=== PATIENT | male | born 1955 | race Caucasian/White ===

== ENCOUNTER 2018-03-16 21:52 | Inpatient (IN) | payer OTHER ==
[~2018-03-16] VITALS: Ht 190.5 cm; Wt 88.0 kg
[2018-03-16] MEDS ORDERED: ALBUTEROL SULFATE 2.5 MG/3 ML NEBU. CONT NEB ONE (22:15)
[2018-03-16] MEDS ORDERED: methylPREDNISolone SOD SUCC PF 125 MG/2 ML VIAL. IV ONE (22:15)
[2018-03-16 22:24] LABS: BASO % 0 % (0-3); EOS # 0.1 x10^3/uL (0.0-0.7); EOS % 1 % (0-3); HEMOGLOBIN 14.5 g/dL (13.0-17.5); LYMPH # 2.1 x10^3/uL (1.0-4.8); LYMPH % 18 % (24-48); MEAN CORPUSCULAR HEMOGLOBIN 30 pg (25-35); MEAN CORPUSCULAR HGB CONC 34 g/dL (31-37); MEAN CORPUSCULAR VOLUME 89 fL (79-100); MONO % 9 % (0-9); NEUT # 8.3 x10^3uL (1.8-7.7); NEUT % 72 % (31-73); PLATELET COUNT 221 x10^3/uL (140-400); RED BLOOD COUNT 4.85 x10^6/uL (4.30-5.70); RED CELL DISTRIBUTION WIDTH 15.8 % (11.5-14.5); WHITE BLOOD COUNT 11.6 x10^3/uL (4.0-11.0)
[2018-03-16 22:33] LABS: CALCIUM 9.6 mg/dL (8.5-10.1); CREATININE 0.8 mg/dL (0.7-1.3); GFR 97.3; POTASSIUM 4.5 mmol/L (3.5-5.1)
[2018-03-16 22:37] LABS: ALBUMIN 3.6 g/dL (3.4-5.0); ALBUMIN/GLOBULIN RATIO 0.9 (1.0-1.7); TOTAL BILIRUBIN 0.3 mg/dL (0.2-1.0); TOTAL PROTEIN 7.6 g/dL (6.4-8.2)
--- NOTE | 2018-03-16 23:00 | RAD ---
AP portable chest radiograph 03/16/2018 Clinical History: Shortness of breath. An AP erect portable digital radiograph of the chest was obtained. Comparison study is dated 11/09/2012. The cardiac silhouette is normal in size. The thoracic aorta is minimally tortuous. Atherosclerotic calcification of the thoracic aorta is seen. Emphysematous changes are seen involving both lungs. No acute pulmonary infiltrate is seen. No pleural effusion or pneumothorax is noted. Degenerative changes are seen involving the thoracic spine. IMPRESSION: No acute abnormality is seen. Electronically signed by: Gerald Chamberlain MD (03/16/2018 10:57 PM) [facility]
--- NOTE | 2018-03-16 23:18 | PHYS DOC ---
Past Medical History Past Medical History: COPD Past Surgical History: Appendectomy, Cholecystectomy, Other Additional Past Surgical Histo: KNEE Additional Information: 1 PPD Alcohol Use: None Drug Use: Methadone Adult General Chief Complaint Chief Complaint: SHORTNESS OF BREATH HPI HPI Patient is a 62 year old male who presents with shortness of breath. The patient does have a diagnosis of COPD. He states that he has been extremely short of breath for the past 2 days. He is also wheezing. None of his at home medications are believed of symptoms. He denies chest pain diaphoresis or fever. He does have a cough. The patient is a current smoker. Review of Systems Review of Systems Constitutional: Denies fever or chills [] Eyes: Denies change in visual acuity, redness, or eye pain [] HENT: Denies nasal congestion or sore throat [] Respiratory: See history of present illness Cardiovascular: No additional information not addressed in HPI [] GI: Denies abdominal pain, nausea, vomiting, bloody stools or diarrhea [] : Denies dysuria or hematuria [] Musculoskeletal: Denies back pain or joint pain [] Integument: Denies rash or skin lesions [] Neurologic: Denies headache, focal weakness or sensory changes [] Endocrine: Denies polyuria or polydipsia [] All other systems were reviewed and found to be within normal limits, except as documented in this note. Current Medications Current Medications Current Medications Medications (Trade) Dose Ordered Sig/Candace Start Time Stop Time Status Last Admin Dose Admin Albuterol Sulfate (Ventolin Neb Soln) 10 mg 1X ONCE 03/16/18 22:15 03/16/18 22:16 DC 03/16/18 22:15 10 MG Albuterol/ Ipratropium (Duoneb) 3 ml RTQID 03/17/18 08:00 03/18/18 07:59 Methylprednisolone Sodium Succinate (SOLU-Medrol 125MG VIAL) 125 mg 1X ONCE 03/16/18 22:15 03/16/18 22:16 DC 03/16/18 22:15 125 MG Ondansetron HCl (Zofran) 4 mg PRN Q8HRS PRN 03/17/18 00:00 03/17/18 23:59 Sodium Chloride 1,000 ml @ 125 mls/hr Q8H 03/17/18 00:00 03/17/18 00:04 DC Allergies Allergies Allergies Coded Allergies Type Severity Reaction Last Updated Verified No Known Drug Allergies 03/16/18 No Physical Exam Physical Exam Constitutional: Well developed, well nourished, no acute distress, non-toxic appearance. [] HENT: Normocephalic, atraumatic, bilateral external ears normal, oropharynx moist, no oral exudates, nose normal. [] Eyes: PERRLA, EOMI, conjunctiva normal, no discharge. [] Neck: Normal range of motion, no tenderness, supple, no stridor. [] Cardiovascular:Heart rate regular rhythm, no murmur [] Lungs & Thorax: Bilateral breath sounds are decreased with wheezes noted throughout Abdomen: Bowel sounds normal, soft, no tenderness, no masses, no pulsatile masses. [] Skin: Warm, dry, no erythema, no rash. [] Neurologic: Alert and oriented X 3, normal motor function, normal sensory function, no focal deficits noted. [] Psychologic: Affect normal, judgement normal, mood normal. [] Current Patient Data Vital Signs Vital Signs Date Time Temp Pulse Resp B/P (MAP) Pulse Ox O2 Delivery O2 Flow Rate FiO2 03/16/18 23:59 95 Nasal Cannula 3.0 03/16/18 22:06 98.1 114 22 145/74 (97) 98.1 Lab Values Laboratory Tests Test 03/16/18 22:01 03/16/18 22:10 O2 Saturation 93 % (92-99) Arterial Blood pH 7.32 (7.35-7.45) L Arterial Blood pCO2 at Patient Temp 56 mmHg (35-46) H Arterial Blood pO2 at Patient Temp 64 mmHg (65-108) L Arterial Blood HCO3 28 mmol/L (21-28) Arterial Blood Base Excess 1 mmol/L (-3-3) Oxyhemoglobin 82.5 % Methemoglobin 0.2 % (0.0-1.9) Carbon Monoxide, Quantitative 10.7 % (0.0-1.9) *H White Blood Count 11.6 x10^3/uL (4.0-11.0) H Red Blood Count 4.85 x10^6/uL (4.30-5.70) Hemoglobin 14.5 g/dL (13.0-17.5) Hematocrit 43.0 % (39.0-53.0) Mean Corpuscular Volume 89 fL (79-100) Mean Corpuscular Hemoglobin 30 pg (25-35) Mean Corpuscular Hemoglobin Concent 34 g/dL (31-37) Red Cell Distribution Width 15.8 % (11.5-14.5) H Platelet Count 221 x10^3/uL (140-400) Neutrophils (%) (Auto) 72 % (31-73) Lymphocytes (%) (Auto) 18 % (24-48) L Monocytes (%) (Auto) 9 % (0-9) Eosinophils (%) (Auto) 1 % (0-3) Basophils (%) (Auto) 0 % (0-3) Neutrophils # (Auto) 8.3 x10^3uL (1.8-7.7) H Lymphocytes # (Auto) 2.1 x10^3/uL (1.0-4.8) Monocytes # (Auto) 1.0 x10^3/uL (0.0-1.1) Eosinophils # (Auto) 0.1 x10^3/uL (0.0-0.7) Basophils # (Auto) 0.0 x10^3/uL (0.0-0.2) Sodium Level 138 mmol/L (136-145) Potassium Level 4.5 mmol/L (3.5-5.1) Chloride Level 100 mmol/L (98-107) Carbon Dioxide Level 30 mmol/L (21-32) Anion Gap 8 (6-14) Blood Urea Nitrogen 16 mg/dL (8-26) Creatinine 0.8 mg/dL (0.7-1.3) Estimated GFR (Cockcroft-Gault) 97.3 BUN/Creatinine Ratio 20 (6-20) Glucose Level 126 mg/dL (70-99) H Lactic Acid Level 0.6 mmol/L (0.4-2.0) Calcium Level 9.6 mg/dL (8.5-10.1) Total Bilirubin 0.3 mg/dL (0.2-1.0) Aspartate Amino Transferase (AST) 17 U/L (15-37) Alanine Aminotransferase (ALT) 22 U/L (16-63) Alkaline Phosphatase 134 U/L (46-116) H Total Protein 7.6 g/dL (6.4-8.2) Albumin 3.6 g/dL (3.4-5.0) Albumin/Globulin Ratio 0.9 (1.0-1.7) L Laboratory Tests 03/16/18 22:10 Laboratory Tests 03/16/18 22:10 EKG EKG [] Radiology/Procedures Radiology/Procedures [] PATIENT: LYNDA GUAJARDO ACCOUNT: [id number] : 1955 LOCATION: ER AGE: 62 SEX: M EXAM STATUS: REG ER ORD. PHYSICIAN: CHELA COLLINS GLUING MACHINE OPERATOR AUTOMATIC REASON: soa PROCEDURE: CHEST AP ONLY AP portable chest radiograph 03/16/2018 Clinical History: Shortness of breath. An AP erect portable digital radiograph of the chest was obtained. Comparison study is dated 11/09/2012. The cardiac silhouette is normal in size. The thoracic aorta is minimally tortuous. Atherosclerotic calcification of the thoracic aorta is seen. Emphysematous changes are seen involving both lungs. No acute pulmonary infiltrate is seen. No pleural effusion or pneumothorax is noted. Degenerative changes are seen involving the thoracic spine. IMPRESSION: No acute abnormality is seen. Electronically signed by: Gerald Chamberlain MD (03/16/2018 10:57 PM) [facility] DICTATED and SIGNED BY: GERALD CHAMBERLAIN MD DATE: 03/16/18 4671 Course & Med Decision Making Course & Med Decision Making Pertinent Labs and Imaging studies reviewed. (See chart for details) []The patient has been given Solu-Medrol and an hour-long nebulizer treatment in the emergency department with albuterol. The wheezing did decrease but the patient still has coarse breath sounds. This was followed with a DuoNeb breathing treatment. The patient is still needing 3 L of O2 to maintain an oxygen sat of 93%. The patient does desat when oxygen is removed into the 80s. The patient will be admitted to Dr. Jeffries's service. Pulmonology has been consulted. Dragon Disclaimer Dragon Disclaimer This electronic medical record was generated, in whole or in part, using a voice recognition dictation system. Departure Departure Impression: Primary Impression: COPD exacerbation Additional Impression: Hypoxia Disposition: ADMITTED INPATIENT Admitting Physician: Xie. Weinstein Condition: GUARDED Referrals: MICHAEL SERNA MD (PCP) Problem Qualifiers CHELA COLLINS GLUING MACHINE OPERATOR AUTOMATIC Mar 16, 2018 23:18
[2018-03-16 23:49] LABS: BASE EXCESS COOX 1 mmol/L (-3-3); HCO3 COOX 28 mmol/L (21-28); METHEMOGLOBIN 0.2 % (0.0-1.9); OXYHEMOGLOBIN 82.5 %; PCO2 COOX 56 mmHg (35-46); PO2 COOX 64 mmHg (65-108); SAT O2 COOX 93 % (92-99)
--- NOTE | 2018-03-16 23:53 | EKG ---
[facility] [address] [place] [address] Test Date: 2018-03-16 Test Time: 22:10:51 Pat Name: LYNDA GUAJARDO Department: Room: Gender: M Complaints Coordinator: : 1955 Requested By: CEHLA COLLINS Order Number: [id number] Reading MD: Daryn Her Measurements Intervals [place] Rate: 96 P: 21 IN: 152 QRS: -48 QRSD: 88 T: 58 QT: 362 QTc: 458 Interpretive Statements SINUS RHYTHM ABNORMAL LEFT AXIS DEVIATION ABNORMAL ECG Electronically Signed On 03-20-2018 10:53:03 CDT by Daryn Her
[2018-03-16] MEDS ORDERED: IPRATRPIUM/ALBUTEROL 0.5/2.5MG 3 ML NEBU. NEB ONE (23:55)
[2018-03-17] MEDS ORDERED: ONDANSETRON PF 4 MG/2 ML VIAL. IV PRN
[2018-03-17] MEDS ORDERED: IV NORMAL SALINE 1000ML BAG 1,000 ML IV SCH
[2018-03-17 02:32] VITALS: BP 129/73
[2018-03-17 05:37] LABS: CREATININE 0.8 mg/dL (0.7-1.3); GFR 97.3; POTASSIUM 4.7 mmol/L (3.5-5.1)
[2018-03-17 07:00] VITALS: BP 117/67
[2018-03-17] MEDS ORDERED: IPRATRPIUM/ALBUTEROL 0.5/2.5MG 3 ML NEBU. NEB SCH (08:00)
--- NOTE | 2018-03-17 08:17 | PDOC1 ---
History and Physical Date of Admission Date of Admission DATE: 03/17/18 TIME: 08:08 Source Source: Chart review, Patient History of Present Illness History of Present Illness Mr. Rubin is a 62 year old male admit overnight from the ER with acute shortness of breath. His PCP is Dr. Gonzalez, he takes no meds, is retired from [employer], lives with his son, has no medical problems that he knows of He had been extremely short of breath for the past 2 days, w. wheezing. cough but no sputum production, he does have a regular AM cough, After steroids and nebs given in the ER, he feels much improved and is now asking how soon he may get to go home Past Medical History Cardiovascular: No pertinent hx Pulmonary: No pertinent hx GI: No pertinent hx Heme/Onc: No pertinent hx Hepatobiliary: No pertinent hx ENT: No pertinent hx Social History Smoke: <1 pack per day ALCOHOL: none Drugs: None Current Problem List Problem List Problems Medical Problems: (1) COPD exacerbation Status: Acute (2) Hypoxia Status: Acute Current Medications Current Medications Current Medications Albuterol Sulfate (Ventolin Neb Soln) 10 mg 1X ONCE CONT NEB Last administered on 03/16/18at 22:15; Start 03/16/18 at 22:15; Stop 03/16/18 at 22:16 ; Status DC Methylprednisolone Sodium Succinate (SOLU-Medrol 125MG VIAL) 125 mg 1X ONCE IV Last administered on 03/16/18at 22:15; Start 03/16/18 at 22:15; Stop 03/16/18 at 22:16; Status DC Albuterol/ Ipratropium (Duoneb) 3 ml 1X ONCE NEB Last administered on at 23:55; Start 03/16/18 at 23:55; Stop 03/16/18 at 23:58; Status DC Ondansetron HCl (Zofran) 4 mg PRN Q8HRS PRN IV NAUSEA/VOMITING; Start 03/17/18 at 00:00; Stop 03/17/18 at 23:59 Sodium Chloride 1,000 ml @ 125 mls/hr Q8H IV Last administered on 03/17/18at 00 :59; Start 03/17/18 at 00:00; Stop 03/17/18 at 00:04; Status DC Albuterol/ Ipratropium (Duoneb) 3 ml RTQID NEB Last administered on 03/17/18at 07:35; Start 03/17/18 at 08:00; Stop 03/17/18 at 08:00; Status DC Albuterol/ Ipratropium (Duoneb) 3 ml Q4HRS W/A NEB ; Start 03/17/18 at 10:00 Prednisone (Prednisone) 40 mg DAILY PO ; Start 03/17/18 at 09:00 Active Scripts Active Reported No Known Medications Prior To Admisstion (Info) Each 1 Each Allergies Allergies: Coded Allergies: No Known Drug Allergies (Unverified , 03/16/18) ROS General: No: Chills, Night Sweats, Fatigue, Malaise, Appetite, Other PSYCHOLOGICAL ROS: No: Anxiety, Behavioral Disorder, Concentration difficultie , Decreased libido, Depression, Disorientation, Hallucinations, Hostility, Irritablity, Memory difficulties, Mood Swings, Obsessive thoughts, Physical abuse, Sexual abuse, Sleep disturbances, Suicidal ideation, Other Eyes: No Blurry vision, No Decreased vision, No Double vision, No Dry eyes, No Excessive tearing, No Eye Pain, No Itchy Eyes, No Loss of vision, No Photophobia , No Scotomata, No Uses contacts, No Uses glasses, No Other HEENT: No: Heacaches, Visual Changes, Hearing change, Nasal congestion, Nasal discharge, Oral lesions, Sinus pain, Sore Throat, Epistaxis, Sneezing, Snoring, Tinnitus, Vertigo, Vocal changes, Other Respiratory: YES: Cough, Shortness of breath, SOB with excertion, Wheezing Cardiovascular: No Chest Pain, No Palpitations, No Orthopnea, No Paroxysmal Noc. Dyspnea, No Edema, No Lt Headedness, No Other Gastrointestinal: No Nausea, No Vomiting, No Abdominal Pain, No Diarrhea, No Constipation, No Melena, No Hematochezia, No Other Genitourinary: No Dysuria, No Frequency, No Incontinence, No Hematuria, No Retention, No Discharge, No Urgency, No Pain, No Flank Pain, No Other, No , No , No , No , No , No , No Musculoskeletal: No Gait Disturbance, No Joint Pain, No Joint Stiffness, No Joint Swelling, No Muscle Pain, No Muscular Weakness, No Pain In:, No Swelling In:, No Other Neurological: No Behavorial Changes, No Bowel/Bladder ControlChng, No Confusion , No Dizziness, No Gait Disturbance, No Headaches, No Impaired Coord/balance, No Memory Loss, No Numbness/Tingling, No Seizures, No Speech Problems, No Tremors, No Visual Changes, No Weakness, No Other Skin: No Dry Skin, No Eczema, No Hair Changes, No Lumps, No Mole Changes, No Mottling, No Nail Changes, No Pruritus, No Rash, No Skin Lesion Changes, No Other, No Acne Physical Exam General: Alert, Oriented X3, Cooperative, No acute distress HEENT: EOMI, Mucous membr. moist/pink Lungs: Other (no wheeze, fine rales, decent volume) Heart: S1S2, no murmurs Abdomen: Normal bowel sounds Extremities: No clubbing, No edema Skin: No breakdown, No significant lesion Neuro: Normal speech, Sensation intact, Cranial nerves 3-12 NL Psych/Mental Status: Mood NL Vitals Vitals Vital Signs Date Time Temp Pulse Resp B/P (MAP) Pulse Ox O2 Delivery O2 Flow Rate FiO2 03/17/18 07:37 94 Nasal Cannula 3.0 03/17/18 02:32 97.8 74 19 129/73 (91) 97.8 Labs Labs Laboratory Tests Test 03/16/18 22:01 03/16/18 22:10 03/17/18 04:40 O2 Saturation 93 % (92-99) Arterial Blood pH 7.32 (7.35-7.45) Arterial Blood pCO2 at Patient Temp 56 mmHg (35-46) Arterial Blood pO2 at Patient Temp 64 mmHg (65-108) Arterial Blood HCO3 28 mmol/L (21-28) Arterial Blood Base Excess 1 mmol/L (-3-3) Oxyhemoglobin 82.5 % Methemoglobin 0.2 % (0.0-1.9) Carbon Monoxide, Quantitative 10.7 % (0.0-1.9) White Blood Count 11.6 x10^3/uL (4.0-11.0) Red Blood Count 4.85 x10^6/uL (4.30-5.70) Hemoglobin 14.5 g/dL (13.0-17.5) Hematocrit 43.0 % (39.0-53.0) Mean Corpuscular Volume 89 fL (79-100) Mean Corpuscular Hemoglobin 30 pg (25-35) Mean Corpuscular Hemoglobin Concent 34 g/dL (31-37) Red Cell Distribution Width 15.8 % (11.5-14.5) Platelet Count 221 x10^3/uL (140-400) Neutrophils (%) (Auto) 72 % (31-73) Lymphocytes (%) (Auto) 18 % (24-48) Monocytes (%) (Auto) 9 % (0-9) Eosinophils (%) (Auto) 1 % (0-3) Basophils (%) (Auto) 0 % (0-3) Neutrophils # (Auto) 8.3 x10^3uL (1.8-7.7) Lymphocytes # (Auto) 2.1 x10^3/uL (1.0-4.8) Monocytes # (Auto) 1.0 x10^3/uL (0.0-1.1) Eosinophils # (Auto) 0.1 x10^3/uL (0.0-0.7) Basophils # (Auto) 0.0 x10^3/uL (0.0-0.2) Sodium Level 138 mmol/L (136-145) 139 mmol/L (136-145) Potassium Level 4.5 mmol/L (3.5-5.1) 4.7 mmol/L (3.5-5.1) Chloride Level 100 mmol/L (98-107) 104 mmol/L (98-107) Carbon Dioxide Level 30 mmol/L (21-32) 29 mmol/L (21-32) Anion Gap 8 (6-14) 6 (6-14) Blood Urea Nitrogen 16 mg/dL (8-26) 14 mg/dL (8-26) Creatinine 0.8 mg/dL (0.7-1.3) 0.8 mg/dL (0.7-1.3) Estimated GFR (Cockcroft-Gault) 97.3 97.3 BUN/Creatinine Ratio 20 (6-20) Glucose Level 126 mg/dL (70-99) 146 mg/dL (70-99) Lactic Acid Level 0.6 mmol/L (0.4-2.0) Calcium Level 9.6 mg/dL (8.5-10.1) 9.0 mg/dL (8.5-10.1) Total Bilirubin 0.3 mg/dL (0.2-1.0) Aspartate Amino Transf (AST/SGOT) 17 U/L (15-37) Alanine Aminotransferase (ALT/SGPT) 22 U/L (16-63) Alkaline Phosphatase 134 U/L (46-116) Total Protein 7.6 g/dL (6.4-8.2) Albumin 3.6 g/dL (3.4-5.0) Albumin/Globulin Ratio 0.9 (1.0-1.7) Laboratory Tests Test 03/16/18 22:01 03/16/18 22:10 03/17/18 04:40 O2 Saturation 93 % (92-99) Arterial Blood pH 7.32 (7.35-7.45) Arterial Blood pCO2 at Patient Temp 56 mmHg (35-46) Arterial Blood pO2 at Patient Temp 64 mmHg (65-108) Arterial Blood HCO3 28 mmol/L (21-28) Arterial Blood Base Excess 1 mmol/L (-3-3) Oxyhemoglobin 82.5 % Methemoglobin 0.2 % (0.0-1.9) Carbon Monoxide, Quantitative 10.7 % (0.0-1.9) White Blood Count 11.6 x10^3/uL (4.0-11.0) Red Blood Count 4.85 x10^6/uL (4.30-5.70) Hemoglobin 14.5 g/dL (13.0-17.5) Hematocrit 43.0 % (39.0-53.0) Mean Corpuscular Volume 89 fL (79-100) Mean Corpuscular Hemoglobin 30 pg (25-35) Mean Corpuscular Hemoglobin Concent 34 g/dL (31-37) Red Cell Distribution Width 15.8 % (11.5-14.5) Platelet Count 221 x10^3/uL (140-400) Neutrophils (%) (Auto) 72 % (31-73) Lymphocytes (%) (Auto) 18 % (24-48) Monocytes (%) (Auto) 9 % (0-9) Eosinophils (%) (Auto) 1 % (0-3) Basophils (%) (Auto) 0 % (0-3) Neutrophils # (Auto) 8.3 x10^3uL (1.8-7.7) Lymphocytes # (Auto) 2.1 x10^3/uL (1.0-4.8) Monocytes # (Auto) 1.0 x10^3/uL (0.0-1.1) Eosinophils # (Auto) 0.1 x10^3/uL (0.0-0.7) Basophils # (Auto) 0.0 x10^3/uL (0.0-0.2) Sodium Level 138 mmol/L (136-145) 139 mmol/L (136-145) Potassium Level 4.5 mmol/L (3.5-5.1) 4.7 mmol/L (3.5-5.1) Chloride Level 100 mmol/L (98-107) 104 mmol/L (98-107) Carbon Dioxide Level 30 mmol/L (21-32) 29 mmol/L (21-32) Anion Gap 8 (6-14) 6 (6-14) Blood Urea Nitrogen 16 mg/dL (8-26) 14 mg/dL (8-26) Creatinine 0.8 mg/dL (0.7-1.3) 0.8 mg/dL (0.7-1.3) Estimated GFR (Cockcroft-Gault) 97.3 97.3 BUN/Creatinine Ratio 20 (6-20) Glucose Level 126 mg/dL (70-99) 146 mg/dL (70-99) Lactic Acid Level 0.6 mmol/L (0.4-2.0) Calcium Level 9.6 mg/dL (8.5-10.1) 9.0 mg/dL (8.5-10.1) Total Bilirubin 0.3 mg/dL (0.2-1.0) Aspartate Amino Transf (AST/SGOT) 17 U/L (15-37) Alanine Aminotransferase (ALT/SGPT) 22 U/L (16-63) Alkaline Phosphatase 134 U/L (46-116) Total Protein 7.6 g/dL (6.4-8.2) Albumin 3.6 g/dL (3.4-5.0) Albumin/Globulin Ratio 0.9 (1.0-1.7) VTE Prophylaxis Ordered VTE Prophylaxis Devices: No VTE Pharmacological Prophylaxi: No Assessment/Plan Assessment/Plan cough, dyspnea, acute hypoxia COPD with acute bronchitis, emphasematous change on CXR, will need outpatient PFT in f/u elevated carbon monoxide on ABG, possible from the cigarettes, but I asked him to check his home for CO ongoing tobacco use disorder calcified aorta finding on CXR discussed with patient, CV risk, should have outpatient cazares admit MARCEL LINO MD Mar 17, 2018 08:17
[2018-03-17] MEDS: predniSONE 20 MG TABLET PO SCH (08:54)
[2018-03-17] MEDS: NICOTINE 21MG PATCH. TD SCH (08:55)
--- NOTE | 2018-03-17 10:36 | CONS ---
DATE OF CONSULTATION: ATTENDING PHYSICIAN: Dr. Jeffries. REASON FOR CONSULTATION: Dyspnea. HISTORY OF PRESENT ILLNESS: The patient is a 62-year-old male who has smoked for at least 40 years, 1 pack per day. He presented to the hospital with increasing shortness of breath since yesterday. The patient denies any chest pain. The patient has a cough, which was nonproductive. No fever, no chills. He is not on home oxygen, has no history of DVT or pulmonary embolism. No nausea or vomiting, no diarrhea, no dysuria, no focal weakness. No headaches. No skin rash. Chest x-ray was reviewed by me and per my review, it appears to have prominent interstitial markings. It was read as normal. I have been asked to see him for further evaluation. PAST MEDICAL HISTORY: Suspected COPD, unknown FEV1. PAST SURGICAL HISTORY: Appendectomy, cholecystectomy and knee surgery. ALLERGIES: None. MEDICATIONS: Reviewed, as listed in the MRAD, including DuoNebs and prednisone. REVIEW OF SYSTEMS: Twelve-point system obtained. Pertinent positives discussed in my history of present illness, otherwise noncontributory. All systems that were negative were reviewed as well. FAMILY HISTORY: Noncontributory to lungs. SOCIAL HISTORY: Smoker for 40 years and still smokes a pack a day. PHYSICAL EXAMINATION: GENERAL: He is awake and following commands. VITAL SIGNS: Pulse ox 94% on 3 liters, afebrile. HEENT: Sclerae nonicteric. NECK: Supple. LUNGS: With faint expiratory wheezes. CARDIOVASCULAR: Regular rate. ABDOMEN: Soft. EXTREMITIES: With no pitting edema. LABORATORY DATA: Reviewed. White cell count 11.6, hemoglobin 14.5 and platelets are 221. ABGs with a pH of 7.32, pCO2 of 56 and a pO2 of 64, carbon monoxide level was 10.7. This probably was obtained on room air. BUN and creatinine normal. IMPRESSION: 1. Acute hypoxic respiratory failure secondary to acute exacerbation of chronic obstructive pulmonary disease; however, cannot exclude mild interstitial edema. 2. Abnormal chest x-ray with slightly prominent interstitial markings. I will do a noncontrast CT chest to better assess for parenchymal abnormalities and to rule out congestive heart failure. 3. Forty years of tobaccoism, suspect underlying chronic obstructive pulmonary disease. 4. Acute hypercapnic and hypoxic respiratory failure. RECOMMENDATIONS: 1. Continue with present DuoNebs. 2. Continue with oral prednisone. 3. Continue with oxygen with slow taper. 4. Smoking cessation counseling provided. 5. Pulmonary function tests as an outpatient. 6. Obtain noncontrast CT chest to rule out any CHF. 7. Obtain echocardiogram. 8. We will follow along with you. Possible discharge in the next 24 hours. TIKI KING MD DR: JAYESH/abida JOB#: [id number] / [id number] ROMINA
[2018-03-17 11:00] VITALS: BP 107/59
--- NOTE | 2018-03-17 11:37 | RAD ---
EXAM: CT Chest without IV contrast CLINICAL HISTORY: SHORTNESS OF BREATH, COUGH COMPARISON: CT 09/25/2006, chest radiograph 03/16/2018 TECHNIQUE: CT of the chest without intravenous contrast. Axial, coronal and sagittal reformatted images were generated. ---PQRS compliance statement - One or more of the following individualized dose reduction techniques were utilized for this study: 1. Automated exposure control 2. Adjustment of the mA and/or kV according to patient size 3. Use of iterative reconstruction technique--- FINDINGS: Lack of intravenous contrast limits evaluation of solid organs, vasculature, and lymph nodes. Chest: The heart is not enlarged. Coronary artery calcifications are seen. No pericardial effusion. No mediastinal or hilar lymphadenopathy by size criteria. Prominent mediastinal lymph nodes are seen. No axillary lymphadenopathy. No pleural effusion or pneumothorax. Dependent opacities bilaterally likely atelectasis/scarring. A 4 mm middle lobe lung nodule (image 37) is stable to 09/25/2006. A 3 mm right upper lobe lung nodule is also stable. A 4 mm left upper lobe lung nodule (image 14) is stable. Bilateral emphysematous changes are seen. Visualized Upper abdomen: Cholecystectomy clips are seen. Calcified granuloma are seen within the spleen. Upper abdomen is otherwise unremarkable. Moderate to large volume colonic stool content. Bones: Multilevel degenerative changes of the spine are seen. IMPRESSION: 1. Bilateral emphysematous changes are seen with prominent biapical cystic change. 2. No lobar consolidation. 3. Multiple bilateral lung nodules are seen, stable to 09/2006. 4. Although some prominent mediastinal lymph nodes are seen, no thoracic lymphadenopathy by size criteria. Electronically signed by: Chidi Bhandari MD (03/17/2018 11:34 AM) [facility]
[2018-03-17] MEDS: IPRATRPIUM/ALBUTEROL 0.5/2.5MG 3 ML NEBU. NEB SCH ×4 (11:44→22:00)
[2018-03-17 15:00] VITALS: BP 112/60
[2018-03-17 19:59] VITALS: BP 113/55
[2018-03-17] MEDS ORDERED: ZOLPIDEM 5 MG TABLET. PO PRN (20:00)
[2018-03-17 23:59] VITALS: BP 106/48
[2018-03-18 02:32] VITALS: BP 115/59
[2018-03-18] MEDS: IPRATRPIUM/ALBUTEROL 0.5/2.5MG 3 ML NEBU. NEB SCH ×2 (06:54→10:51)
[2018-03-18 07:00] VITALS: BP 118/63
[2018-03-18] MEDS: predniSONE 20 MG TABLET PO SCH (09:16)
[2018-03-18] MEDS: NICOTINE 21MG PATCH. TD SCH (09:16)
--- NOTE | 2018-03-18 10:34 | PDOC ---
PULMONARY PROGRESS NOTES Subjective no soa Vitals Vital Signs Date Time Temp Pulse Resp B/P (MAP) Pulse Ox O2 Delivery O2 Flow Rate FiO2 03/18/18 08:00 Room Air 1.0 03/18/18 07:00 97.9 82 18 118/63 (81) 90 97.9 General: Alert, No acute distress Lungs: Clear Cardiovascular: S1 Abdomen: Soft Neuro Exam: Alert Extremities: No Edema Skin: Warm Labs Laboratory Tests Test 03/16/18 22:01 03/16/18 22:10 03/17/18 04:40 O2 Saturation 93 % (92-99) Arterial Blood pH 7.32 (7.35-7.45) Arterial Blood pCO2 at Patient Temp 56 mmHg (35-46) Arterial Blood pO2 at Patient Temp 64 mmHg (65-108) Arterial Blood HCO3 28 mmol/L (21-28) Arterial Blood Base Excess 1 mmol/L (-3-3) Oxyhemoglobin 82.5 % Methemoglobin 0.2 % (0.0-1.9) Carbon Monoxide, Quantitative 10.7 % (0.0-1.9) White Blood Count 11.6 x10^3/uL (4.0-11.0) Red Blood Count 4.85 x10^6/uL (4.30-5.70) Hemoglobin 14.5 g/dL (13.0-17.5) Hematocrit 43.0 % (39.0-53.0) Mean Corpuscular Volume 89 fL (79-100) Mean Corpuscular Hemoglobin 30 pg (25-35) Mean Corpuscular Hemoglobin Concent 34 g/dL (31-37) Red Cell Distribution Width 15.8 % (11.5-14.5) Platelet Count 221 x10^3/uL (140-400) Neutrophils (%) (Auto) 72 % (31-73) Lymphocytes (%) (Auto) 18 % (24-48) Monocytes (%) (Auto) 9 % (0-9) Eosinophils (%) (Auto) 1 % (0-3) Basophils (%) (Auto) 0 % (0-3) Neutrophils # (Auto) 8.3 x10^3uL (1.8-7.7) Lymphocytes # (Auto) 2.1 x10^3/uL (1.0-4.8) Monocytes # (Auto) 1.0 x10^3/uL (0.0-1.1) Eosinophils # (Auto) 0.1 x10^3/uL (0.0-0.7) Basophils # (Auto) 0.0 x10^3/uL (0.0-0.2) Sodium Level 138 mmol/L (136-145) 139 mmol/L (136-145) Potassium Level 4.5 mmol/L (3.5-5.1) 4.7 mmol/L (3.5-5.1) Chloride Level 100 mmol/L (98-107) 104 mmol/L (98-107) Carbon Dioxide Level 30 mmol/L (21-32) 29 mmol/L (21-32) Anion Gap 8 (6-14) 6 (6-14) Blood Urea Nitrogen 16 mg/dL (8-26) 14 mg/dL (8-26) Creatinine 0.8 mg/dL (0.7-1.3) 0.8 mg/dL (0.7-1.3) Estimated GFR (Cockcroft-Gault) 97.3 97.3 BUN/Creatinine Ratio 20 (6-20) Glucose Level 126 mg/dL (70-99) 146 mg/dL (70-99) Lactic Acid Level 0.6 mmol/L (0.4-2.0) Calcium Level 9.6 mg/dL (8.5-10.1) 9.0 mg/dL (8.5-10.1) Total Bilirubin 0.3 mg/dL (0.2-1.0) Aspartate Amino Transf (AST/SGOT) 17 U/L (15-37) Alanine Aminotransferase (ALT/SGPT) 22 U/L (16-63) Alkaline Phosphatase 134 U/L (46-116) Total Protein 7.6 g/dL (6.4-8.2) Albumin 3.6 g/dL (3.4-5.0) Albumin/Globulin Ratio 0.9 (1.0-1.7) FG-Hcd-J-Type Natriuretic Peptide 336 pg/mL (0-124) Medications Active Scripts Medications Dose Route/Sig Max Daily Dose Days Date Category No Known Medications Prior To Admisstion (Info) Each 1 Each 03/17/[address] CHEST 1. Bilateral emphysematous changes are seen with prominent biapical cystic change. 2. No lobar consolidation. 3. Multiple bilateral lung nodules are seen, stable to 09/2006. 4. Although some prominent mediastinal lymph nodes are seen, no thoracic lymphadenopathy by size criteria. Impression . 1. Acute hypoxic respiratory failure secondary to acute exacerbation of chronic obstructive pulmonary disease;. 2. Abnormal chest x-ray with slightly prominent interstitial markings. ct chest neg 3. Forty years of tobaccoism, suspect underlying chronic obstructive pulmonary disease. 4. Acute hypercapnic and hypoxic respiratory failure. Plan . 1. Continue with present DuoNebs. 2. Continue with oral prednisone. 3. Continue with oxygen with slow taper. 4. Smoking cessation counseling provided. 5. Pulmonary function tests as an outpatient. 6. CT chest with no CHF/Pneumonia. Multiple tiny 3-4 mm bilateral lung nodules are seen, stable to 09/2006.no further intervention 7. Obtain echocardiogram. 8. ok with [facility] TIKI KING MD Mar 18, 2018 10:33
[2018-03-18 11:00] VITALS: BP 134/73
[2018-03-18] MEDS ORDERED: PRED-220 PO (12:37)
[2018-03-18] MEDS ORDERED: IPRA4AER IH (12:37)
--- NOTE | 2018-03-18 12:51 | PDOC3 ---
Discharge Summary Visit Information Date of Admission: Mar 17, 2018 Date of Discharge: Mar 18, 2018 Admitting Diagnosis: hypoxia Final Diagnosis cough, dyspnea, acute hypoxic and hypercarbic failure acute bronchitis, COPD, new diagnoss, elevated carbon monoxide on ABG, ongoing tobacco use disorder calcified aorta finding on CXR discussed with patient, CV risk, should have outpatient eval Problems Medical Problems: (1) COPD exacerbation Status: Acute (2) Hypoxia Status: Acute Brief Hospital Course Allergies Allergies Coded Allergies Type Severity Reaction Last Updated Verified No Known Drug Allergies 03/16/18 No Vital Signs Vital Signs Date Time Temp Pulse Resp B/P (MAP) Pulse Ox O2 Delivery O2 Flow Rate FiO2 03/18/18 11:00 97.2 78 18 134/73 (93) 94 Room Air 97.2 03/18/18 08:00 1.0 Lab Results Laboratory Tests Test 03/16/18 22:01 03/16/18 22:10 03/17/18 04:40 O2 Saturation 93 % (92-99) Arterial Blood pH 7.32 (7.35-7.45) Arterial Blood pCO2 at Patient Temp 56 mmHg (35-46) Arterial Blood pO2 at Patient Temp 64 mmHg (65-108) Arterial Blood HCO3 28 mmol/L (21-28) Arterial Blood Base Excess 1 mmol/L (-3-3) Oxyhemoglobin 82.5 % Methemoglobin 0.2 % (0.0-1.9) Carbon Monoxide, Quantitative 10.7 % (0.0-1.9) White Blood Count 11.6 x10^3/uL (4.0-11.0) Red Blood Count 4.85 x10^6/uL (4.30-5.70) Hemoglobin 14.5 g/dL (13.0-17.5) Hematocrit 43.0 % (39.0-53.0) Mean Corpuscular Volume 89 fL (79-100) Mean Corpuscular Hemoglobin 30 pg (25-35) Mean Corpuscular Hemoglobin Concent 34 g/dL (31-37) Red Cell Distribution Width 15.8 % (11.5-14.5) Platelet Count 221 x10^3/uL (140-400) Neutrophils (%) (Auto) 72 % (31-73) Lymphocytes (%) (Auto) 18 % (24-48) Monocytes (%) (Auto) 9 % (0-9) Eosinophils (%) (Auto) 1 % (0-3) Basophils (%) (Auto) 0 % (0-3) Neutrophils # (Auto) 8.3 x10^3uL (1.8-7.7) Lymphocytes # (Auto) 2.1 x10^3/uL (1.0-4.8) Monocytes # (Auto) 1.0 x10^3/uL (0.0-1.1) Eosinophils # (Auto) 0.1 x10^3/uL (0.0-0.7) Basophils # (Auto) 0.0 x10^3/uL (0.0-0.2) Sodium Level 138 mmol/L (136-145) 139 mmol/L (136-145) Potassium Level 4.5 mmol/L (3.5-5.1) 4.7 mmol/L (3.5-5.1) Chloride Level 100 mmol/L (98-107) 104 mmol/L (98-107) Carbon Dioxide Level 30 mmol/L (21-32) 29 mmol/L (21-32) Anion Gap 8 (6-14) 6 (6-14) Blood Urea Nitrogen 16 mg/dL (8-26) 14 mg/dL (8-26) Creatinine 0.8 mg/dL (0.7-1.3) 0.8 mg/dL (0.7-1.3) Estimated GFR (Cockcroft-Gault) 97.3 97.3 BUN/Creatinine Ratio 20 (6-20) Glucose Level 126 mg/dL (70-99) 146 mg/dL (70-99) Lactic Acid Level 0.6 mmol/L (0.4-2.0) Calcium Level 9.6 mg/dL (8.5-10.1) 9.0 mg/dL (8.5-10.1) Total Bilirubin 0.3 mg/dL (0.2-1.0) Aspartate Amino Transf (AST/SGOT) 17 U/L (15-37) Alanine Aminotransferase (ALT/SGPT) 22 U/L (16-63) Alkaline Phosphatase 134 U/L (46-116) Total Protein 7.6 g/dL (6.4-8.2) Albumin 3.6 g/dL (3.4-5.0) Albumin/Globulin Ratio 0.9 (1.0-1.7) IH-Ygv-D-Type Natriuretic Peptide 336 pg/mL (0-124) Brief Hospital Course Mr. Rubin is a 62 old male [facility] cough and dyspnea, new hypoxia, no prior diagnosis but likely COPD Discharge Information Condition at Discharge: Improved Follow Up: Weeks Disposition/Orders: D/C to Home Scheduled Prednisone (Prednisone ) 10 Mg Tablet, 10 MG PO UD, #12 Ref 0 Take 3 tablets by mouth daily for 2 days, then take 2 tablets by mouth daily for 2 days, then take 1 tablets by mouth daily for 2 days, then stop. Prescribed by: MARCEL LINO on 03/18/18 1237 Scheduled PRN Ipratropium/Albuterol Sulfate (Combivent Respimat Inhal) 4 Gm Aer.w.adap, 1 INH IH QID PRN for shortness of breath, #1 Prescribed by: MARCEL LINO on 03/18/18 1237 Miscellaneous Medications Info (No Known Medications Prior To Admisstion) Each, 1 EACH , (Reported) Entered as Reported by: ANDRE CORONA on 03/17/18553 Last Action: New Order on 03/17/18553 by ANDRE CORONA Patient Instructions Patient Instructions > 30 min face to face MARCEL LINO MD Mar 18, 2018 12:51
== END 2018-03-18 13:38 | disposition home or self-care (01) | DRG 189 ==
LOC: ER 21:52 → 5 SOUTH 23:50
PROVIDERS: ADMIT Internal Medicine; ATTEND Internal Medicine
DX: J96.01 Acute respiratory failure with hypoxia (principal); J44.1 Chronic obstructive pulmonary disease with (acute) exacerbation; J44.0 Chronic obstructive pulmonary disease with (acute) lower respiratory infection; J20.9 Acute bronchitis, unspecified; J96.02 Acute respiratory failure with hypercapnia; F11.90 Opioid use, unspecified, uncomplicated; R79.81 Abnormal blood-gas level; F17.210 Nicotine dependence, cigarettes, uncomplicated; I70.0 Atherosclerosis of aorta; Z90.49 Acquired absence of other specified parts of digestive tract; Z71.6 Tobacco abuse counseling
CPT/HCPCS: 36415; 36600; 71045; 71250; 80048; 80053; 82805; 83605; 83880; 85025; 93005; 94640; 94644; 94760; 96361; 96374; J2930; J7030; J7512; J7613; J7620; 99285-25

== ENCOUNTER 2018-09-15 22:10 | Inpatient (IN) | payer MEDICARE ==
[~2018-09-15] VITALS: Ht 190.5 cm; Wt 90.3 kg
[~2018-09-15 22:10] MED LIST: IPRA4AER IH; PRED-220 PO
[2018-09-15 23:30] LABS: BASO % 0 % (0-3); EOS # 0.1 x10^3/uL (0.0-0.7); EOS % 1 % (0-3); HEMATOCRIT 38.1 % (39.0-53.0); HEMOGLOBIN 12.4 g/dL (13.0-17.5); LYMPH # 1.8 x10^3/uL (1.0-4.8); LYMPH % 15 % (24-48); MEAN CORPUSCULAR HEMOGLOBIN 29 pg (25-35); MEAN CORPUSCULAR HGB CONC 33 g/dL (31-37); MEAN CORPUSCULAR VOLUME 89 fL (79-100); MONO # 1.1 x10^3/uL (0.0-1.1); MONO % 9 % (0-9); NEUT # 9.3 x10^3uL (1.8-7.7); NEUT % 76 % (31-73); PLATELET COUNT 196 x10^3/uL (140-400); RED BLOOD COUNT 4.26 x10^6/uL (4.30-5.70); RED CELL DISTRIBUTION WIDTH 14.8 % (11.5-14.5); WHITE BLOOD COUNT 12.2 x10^3/uL (4.0-11.0)
[2018-09-15] MEDS ORDERED: IPRATRPIUM/ALBUTEROL 0.5/2.5MG 3 ML NEBU. NEB ONE (23:30)
[2018-09-15] MEDS ORDERED: methylPREDNISolone SOD SUCC PF 125 MG/2 ML VIAL. IV ONE (23:30)
[2018-09-15 23:37] LABS: CALCIUM 8.6 mg/dL (8.5-10.1); CREATININE 0.9 mg/dL (0.7-1.3); POTASSIUM 4.2 mmol/L (3.5-5.1)
[2018-09-15 23:42] LABS: ALBUMIN 3.3 g/dL (3.4-5.0); ALBUMIN/GLOBULIN RATIO 0.9 (1.0-1.7); TOTAL BILIRUBIN 0.4 mg/dL (0.2-1.0); TOTAL PROTEIN 6.8 g/dL (6.4-8.2)
[2018-09-15 23:55] LABS: INFLUENZA A PATIENT NEGATIVE (NEGATIVE); INFLUENZA B PATIENT NEGATIVE (NEGATIVE)
--- NOTE | 2018-09-16 00:08 | PHYS DOC ---
Past Medical History Past Medical History: Cancer, COPD Additional Past Medical Histor: SKIN CA ON NOSE Past Surgical History: Appendectomy, Cholecystectomy, Tonsillectomy, Other Additional Past Surgical Histo: KNEE Alcohol Use: None Drug Use: Methadone Adult General Chief Complaint Chief Complaint: SHORTNESS OF BREATH [facility] HPI Patient is a 62 yo male w/ COPD who presents with complaint of shortness of breath that began this afternoon (09/15/18). Patient reports he has noticed a dry cough develop during the day today. He denies fevers, runny nose, sore throat, or other respiratory symptoms. He denies recent international travel or sick contacts. He did not have a flu shot this season. He is not required to wear home oxygen, however he uses his nebulizer 4x/day. He admits intermittent chest pain that goes through his chest into his back. Also admits waking up last night and vomiting. Patient denies nausea, abdominal pain, diarrhea, muscle aches, or other associated sx. He reports his PCP is Dr. Floyd. He is a current smoker, however he has a chantix prescription and is trying to quit smoking. He admits occasional etoh use but denies drug use. Review of Systems Review of Systems Constitutional: Denies fever or chills [] Eyes: Denies change in visual acuity, redness, or eye pain [] HENT: Denies nasal congestion or sore throat [] Respiratory: Denies cough or shortness of breath [] Cardiovascular: No additional information not addressed in HPI [] GI: Denies abdominal pain, nausea, vomiting, bloody stools or diarrhea [] : Denies dysuria or hematuria [] Musculoskeletal: Denies back pain or joint pain [] Integument: Denies rash or skin lesions [] Neurologic: Denies headache, focal weakness or sensory changes [] Endocrine: Denies polyuria or polydipsia [] All other systems were reviewed and found to be within normal limits, except as documented in this note. Current Medications Current Medications Current Medications Medications (Trade) Dose Ordered Sig/Candace Start Time Stop Time Status Last Admin Dose Admin Albuterol/ Ipratropium (Duoneb) 3 ml 1X ONCE 09/15/18 23:30 09/15/18 23:31 DC 09/15/18 23:30 3 ML Methylprednisolone Sodium Succinate (SOLU-Medrol 125MG VIAL) 125 mg 1X ONCE 09/15/18 23:30 09/15/18 23:31 DC 09/15/18 23:30 125 MG Allergies Allergies Allergies Coded Allergies Type Severity Reaction Last Updated Verified No Known Drug Allergies 03/16/18 No Physical Exam Physical Exam Constitutional: Well developed, well nourished, no acute distress, non-toxic appearance. [] HENT: Normocephalic, atraumatic, bilateral external ears normal, oropharynx moist, no oral exudates, nose normal. [] Eyes: PERRLA, EOMI, conjunctiva normal, no discharge. [] Neck: Normal range of motion, no tenderness, supple, no stridor. [] Cardiovascular:Heart rate regular rhythm, no murmur [] Lungs & Thorax: Bilateral breath sounds clear to auscultation [] Abdomen: Bowel sounds normal, soft, no tenderness, no masses, no pulsatile masses. [] Skin: Warm, dry, no erythema, no rash. [] Back: No tenderness, no CVA tenderness. [] Extremities: No tenderness, no cyanosis, no clubbing, ROM intact, no edema. [] Neurologic: Alert and oriented X 3, normal motor function, normal sensory function, no focal deficits noted. [] Psychologic: Affect normal, judgement normal, mood normal. [] Current Patient Data Vital Signs Vital Signs Date Time Temp Pulse Resp B/P (MAP) Pulse Ox O2 Delivery O2 Flow Rate FiO2 09/15/18 23:46 86 18 105/59 (74) 93 Nasal Cannula 3.0 09/15/18 22:10 98.5 98.5 Lab Values Laboratory Tests Test 09/15/18 22:34 09/15/18 23:30 White Blood Count 12.2 x10^3/uL (4.0-11.0) H Red Blood Count 4.26 x10^6/uL (4.30-5.70) L Hemoglobin 12.4 g/dL (13.0-17.5) L Hematocrit 38.1 % (39.0-53.0) L Mean Corpuscular Volume 89 fL (79-100) Mean Corpuscular Hemoglobin 29 pg (25-35) Mean Corpuscular Hemoglobin Concent 33 g/dL (31-37) Red Cell Distribution Width 14.8 % (11.5-14.5) H Platelet Count 196 x10^3/uL (140-400) Neutrophils (%) (Auto) 76 % (31-73) H Lymphocytes (%) (Auto) 15 % (24-48) L Monocytes (%) (Auto) 9 % (0-9) Eosinophils (%) (Auto) 1 % (0-3) Basophils (%) (Auto) 0 % (0-3) Neutrophils # (Auto) 9.3 x10^3uL (1.8-7.7) H Lymphocytes # (Auto) 1.8 x10^3/uL (1.0-4.8) Monocytes # (Auto) 1.1 x10^3/uL (0.0-1.1) Eosinophils # (Auto) 0.1 x10^3/uL (0.0-0.7) Basophils # (Auto) 0.0 x10^3/uL (0.0-0.2) Sodium Level 135 mmol/L (136-145) L Potassium Level 4.2 mmol/L (3.5-5.1) Chloride Level 101 mmol/L (98-107) Carbon Dioxide Level 27 mmol/L (21-32) Anion Gap 7 (6-14) Blood Urea Nitrogen 20 mg/dL (8-26) Creatinine 0.9 mg/dL (0.7-1.3) Estimated GFR (Cockcroft-Gault) 85.0 BUN/Creatinine Ratio 22 (6-20) H Glucose Level 100 mg/dL (70-99) H Calcium Level 8.6 mg/dL (8.5-10.1) Total Bilirubin 0.4 mg/dL (0.2-1.0) Aspartate Amino Transferase (AST) 14 U/L (15-37) L Alanine Aminotransferase (ALT) 16 U/L (16-63) Alkaline Phosphatase 134 U/L (46-116) H Troponin I Quantitative < 0.017 ng/mL (0.000-0.055) SY-Yvp-S-Type Natriuretic Peptide 422 pg/mL (0-124) H Total Protein 6.8 g/dL (6.4-8.2) Albumin 3.3 g/dL (3.4-5.0) L Albumin/Globulin Ratio 0.9 (1.0-1.7) L Influenza Type A Antigen Negative (NEGATIVE) Influenza Type B Antigen Negative (NEGATIVE) Laboratory Tests 09/15/18 22:34 Laboratory Tests 09/15/18 22:34 EKG EKG [] Radiology/Procedures Radiology/Procedures [] Course & Med Decision Making Course & Med Decision Making Pertinent Labs and Imaging studies reviewed. (See chart for details) [] Dragon Disclaimer Dragon Disclaimer This electronic medical record was generated, in whole or in part, using a voice recognition dictation system. Departure Departure Referrals: MICHAEL SERNA MD (PCP) JENNIFER BROWN MD Sep 16, 2018 00:08
--- NOTE | 2018-09-16 00:10 | PHYS DOC ---
Past Medical History Past Medical History: Cancer, COPD Additional Past Medical Histor: SKIN CA ON NOSE Past Surgical History: Appendectomy, Cholecystectomy, Tonsillectomy, Other Additional Past Surgical Histo: KNEE Alcohol Use: None Drug Use: Methadone Adult General Chief Complaint Chief Complaint: SHORTNESS OF BREATH HPI HPI Patient is a 62 year old male who presents shortness of breath. This patient has known COPD he is still smoking has been more short of breath for the last couple of days he has a dry cough he has some chest pain only when he coughs it feels sharp there is no fever he does not use oxygen at home room air sat in triage was 88%. Symptoms are mild to moderate they're worsening with time Review of Systems Review of Systems Constitutional: Denies fever or chills [] Eyes: Denies change in visual acuity, redness, or eye pain [] HENT Respiratory: GI: Denies abdominal pain, nausea, vomiting, bloody stools or diarrhea [] : Denies dysuria or hematuria [] Neurologic: Denies headache, focal weakness or sensory changes [] Endocrine: Denies polyuria or polydipsia [] All other systems were reviewed and found to be within normal limits, except as documented in this note. Current Medications Current Medications Current Medications Medications (Trade) Dose Ordered Sig/Candace Start Time Stop Time Status Last Admin Dose Admin Albuterol/ Ipratropium (Duoneb) 3 ml 1X ONCE 09/15/18 23:30 09/15/18 23:31 DC 09/15/18 23:30 3 ML Methylprednisolone Sodium Succinate (SOLU-Medrol 125MG VIAL) 125 mg 1X ONCE 09/15/18 23:30 09/15/18 23:31 DC 09/15/18 23:30 125 MG Allergies Allergies Allergies Coded Allergies Type Severity Reaction Last Updated Verified No Known Drug Allergies 03/16/18 No Physical Exam Physical Exam Constitutional: Well developed, well nourished, no acute distress, non-toxic appearance. [] HENT: Normocephalic, atraumatic, bilateral external ears normal, oropharynx moist, no oral exudates, nose normal. [] Eyes: PERRLA, EOMI, conjunctiva normal, no discharge. [] Neck: Normal range of motion, no tenderness, supple, no stridor. [] Cardiovascular:Heart rate regular rhythm, no murmur [] Lungs & Thorax: Mild tachypnea patient does have wheezing noted. Abdomen: Bowel sounds normal, soft, no tenderness, no masses, no pulsatile masses. [] Skin: Warm, dry, no erythema, no rash. [] Back: No tenderness, no CVA tenderness. [] Extremities: No tenderness, no cyanosis, no clubbing, ROM intact, no edema. [] Neurologic: Alert and oriented X 3, normal motor function, normal sensory function, no focal deficits noted. [] Psychologic: Affect normal, judgement normal, mood normal. [] Current Patient Data Vital Signs Vital Signs Date Time Temp Pulse Resp B/P (MAP) Pulse Ox O2 Delivery O2 Flow Rate FiO2 09/15/18 23:39 94 Nasal Cannula 2.0 09/15/18 23:16 82 18 121/73 (89) 09/15/18 22:10 98.5 98.5 Lab Values Laboratory Tests Test 09/15/18 22:34 09/15/18 23:30 White Blood Count 12.2 x10^3/uL (4.0-11.0) H Red Blood Count 4.26 x10^6/uL (4.30-5.70) L Hemoglobin 12.4 g/dL (13.0-17.5) L Hematocrit 38.1 % (39.0-53.0) L Mean Corpuscular Volume 89 fL (79-100) Mean Corpuscular Hemoglobin 29 pg (25-35) Mean Corpuscular Hemoglobin Concent 33 g/dL (31-37) Red Cell Distribution Width 14.8 % (11.5-14.5) H Platelet Count 196 x10^3/uL (140-400) Neutrophils (%) (Auto) 76 % (31-73) H Lymphocytes (%) (Auto) 15 % (24-48) L Monocytes (%) (Auto) 9 % (0-9) Eosinophils (%) (Auto) 1 % (0-3) Basophils (%) (Auto) 0 % (0-3) Neutrophils # (Auto) 9.3 x10^3uL (1.8-7.7) H Lymphocytes # (Auto) 1.8 x10^3/uL (1.0-4.8) Monocytes # (Auto) 1.1 x10^3/uL (0.0-1.1) Eosinophils # (Auto) 0.1 x10^3/uL (0.0-0.7) Basophils # (Auto) 0.0 x10^3/uL (0.0-0.2) Sodium Level 135 mmol/L (136-145) L Potassium Level 4.2 mmol/L (3.5-5.1) Chloride Level 101 mmol/L (98-107) Carbon Dioxide Level 27 mmol/L (21-32) Anion Gap 7 (6-14) Blood Urea Nitrogen 20 mg/dL (8-26) Creatinine 0.9 mg/dL (0.7-1.3) Estimated GFR (Cockcroft-Gault) 85.0 BUN/Creatinine Ratio 22 (6-20) H Glucose Level 100 mg/dL (70-99) H Calcium Level 8.6 mg/dL (8.5-10.1) Total Bilirubin 0.4 mg/dL (0.2-1.0) Aspartate Amino Transferase (AST) 14 U/L (15-37) L Alanine Aminotransferase (ALT) 16 U/L (16-63) Alkaline Phosphatase 134 U/L (46-116) H Troponin I Quantitative < 0.017 ng/mL (0.000-0.055) EP-Ovc-L-Type Natriuretic Peptide 422 pg/mL (0-124) H Total Protein 6.8 g/dL (6.4-8.2) Albumin 3.3 g/dL (3.4-5.0) L Albumin/Globulin Ratio 0.9 (1.0-1.7) L Influenza Type A Antigen Negative (NEGATIVE) Influenza Type B Antigen Negative (NEGATIVE) Laboratory Tests 09/15/18 22:34 Laboratory Tests 09/15/18 22:34 EKG EKG EKG shows a normal sinus rhythm rate of 89 no acute ischemic changes noted interpreted by me the time of encounter. No STEMI[] Radiology/Procedures Radiology/Procedures [] Impressions: Wet read of chest showed no definite pneumonia there was maybe a faint hazy interstitial pattern wet read waiting for final Course & Med Decision Making Course & Med Decision Making Pertinent Labs and Imaging studies reviewed. (See chart for details) []62-year-old male with known COPD who is presenting with COPD exacerbation he has wheezing on examination Patient has a oxygen requirement, he is fairly stable overall but I think should be admitted for serial nebs watches improvement with steroids and we did give some doxycycline. Was negative patient is agreeable to the plan labs are stable patient be admitted to the service of [facility] PER USUAL PROTOC[facility] Michelle Disclaimer Michelle Disclaimer This electronic medical record was generated, in whole or in part, using a voice recognition dictation system. Departure Departure Impression: Primary Impression: COPD exacerbation Disposition: ADMITTED INPATIENT Admitting Physician: Priscilla Bermeo Condition: STABLE Referrals: MICHAEL SERNA MD (PCP) JENNIFER BROWN MD Sep 16, 2018 00:10
[2018-09-16] MEDS ORDERED: DOXYCYCLINE HYCLATE 100 MG TABLET PO ONE (00:30)
[2018-09-16 01:10] VITALS: BP 127/65
[2018-09-16] MEDS ORDERED: ZOLPIDEM 5 MG TABLET. PO ONE (01:15)
--- NOTE | 2018-09-16 01:51 | NUR ---
Patient admission Pt arrived to the unit at approximately 0100 from the ED via w/c. Pt was oriented to room and unit routines. Patient care information packet was explained and given to pt. All questions and concerns regarding pt's POC was addressed and answered. Pt verbalized understanding. Pt made comfortable in bed. Will continue to monitor pt closely.
--- NOTE | 2018-09-16 02:31 | RAD ---
AP portable chest radiograph 09/15/2018 Clinical History: Shortness of breath. Two AP erect portable digital radiographs of the chest were obtained. Comparison study is dated 03/16/2018. The cardiac silhouette is normal in size. The thoracic aorta is minimally tortuous. No acute pulmonary infiltrate is seen. Emphysematous changes are again seen involving both lungs. Areas of scarring are seen involving both upper lobes. No pneumothorax or pleural effusion is seen. Degenerative changes are seen involving the thoracic spine. Impression: No acute abnormality is seen. Electronically signed by: Gerald Chamberlain MD (09/16/2018 2:28 AM) [id number]
[2018-09-16 07:00] VITALS: BP 115/66
[2018-09-16] MEDS ORDERED: IPRATRPIUM/ALBUTEROL 0.5/2.5MG 3 ML NEBU. NEB SCH (08:00)
[2018-09-16] MEDS ORDERED: ZOLPIDEM 5 MG TABLET. PO PRN (09:15)
[2018-09-16] MEDS ORDERED: guaiFENesin DM 200MG/20MG 10 ML SYRUP PO PRN (09:15)
[2018-09-16] MEDS ORDERED: IPRA3AMP29 NEB (10:47)
[2018-09-16] MEDS ORDERED: GUAI5SYR PO (10:47)
[2018-09-16] MEDS ORDERED: DOXY100T PO (10:47)
[2018-09-16] MEDS ORDERED: ALBU2.5V8 INH (10:47)
--- NOTE | 2018-09-16 10:51 | PDOC3 ---
Discharge Summary Visit Information Date of Admission: Sep 15, 2018 Date of Discharge: Sep 16, 2018 Admitting Diagnosis Comment: Acute bronchitis No pneumonia on chest x-ray Smoker pack a day Final Diagnosis Problems Medical Problems: (1) COPD exacerbation Status: Acute Brief Hospital Course Allergies Allergies Coded Allergies Type Severity Reaction Last Updated Verified No Known Drug Allergies 03/16/18 No Vital Signs Vital Signs Date Time Temp Pulse Resp B/P (MAP) Pulse Ox O2 Delivery O2 Flow Rate FiO2 09/16/18 07:36 92 Nasal Cannula 2.0 09/16/18 07:00 97.4 82 20 115/66 (82) 97.4 Lab Results Laboratory Tests Test 09/15/18 22:34 09/15/18 23:30 White Blood Count 12.2 x10^3/uL (4.0-11.0) Red Blood Count 4.26 x10^6/uL (4.30-5.70) Hemoglobin 12.4 g/dL (13.0-17.5) Hematocrit 38.1 % (39.0-53.0) Mean Corpuscular Volume 89 fL (79-100) Mean Corpuscular Hemoglobin 29 pg (25-35) Mean Corpuscular Hemoglobin Concent 33 g/dL (31-37) Red Cell Distribution Width 14.8 % (11.5-14.5) Platelet Count 196 x10^3/uL (140-400) Neutrophils (%) (Auto) 76 % (31-73) Lymphocytes (%) (Auto) 15 % (24-48) Monocytes (%) (Auto) 9 % (0-9) Eosinophils (%) (Auto) 1 % (0-3) Basophils (%) (Auto) 0 % (0-3) Neutrophils # (Auto) 9.3 x10^3uL (1.8-7.7) Lymphocytes # (Auto) 1.8 x10^3/uL (1.0-4.8) Monocytes # (Auto) 1.1 x10^3/uL (0.0-1.1) Eosinophils # (Auto) 0.1 x10^3/uL (0.0-0.7) Basophils # (Auto) 0.0 x10^3/uL (0.0-0.2) Sodium Level 135 mmol/L (136-145) Potassium Level 4.2 mmol/L (3.5-5.1) Chloride Level 101 mmol/L (98-107) Carbon Dioxide Level 27 mmol/L (21-32) Anion Gap 7 (6-14) Blood Urea Nitrogen 20 mg/dL (8-26) Creatinine 0.9 mg/dL (0.7-1.3) Estimated GFR (Cockcroft-Gault) 85.0 BUN/Creatinine Ratio 22 (6-20) Glucose Level 100 mg/dL (70-99) Calcium Level 8.6 mg/dL (8.5-10.1) Total Bilirubin 0.4 mg/dL (0.2-1.0) Aspartate Amino Transf (AST/SGOT) 14 U/L (15-37) Alanine Aminotransferase (ALT/SGPT) 16 U/L (16-63) Alkaline Phosphatase 134 U/L (46-116) Troponin I Quantitative < 0.017 ng/mL (0.000-0.055) AD-Ujx-C-Type Natriuretic Peptide 422 pg/mL (0-124) Total Protein 6.8 g/dL (6.4-8.2) Albumin 3.3 g/dL (3.4-5.0) Albumin/Globulin Ratio 0.9 (1.0-1.7) Influenza Type A Antigen Negative (NEGATIVE) Influenza Type B Antigen Negative (NEGATIVE) Laboratory Tests Test 09/15/18 22:34 09/15/18 23:30 White Blood Count 12.2 x10^3/uL (4.0-11.0) Red Blood Count 4.26 x10^6/uL (4.30-5.70) Hemoglobin 12.4 g/dL (13.0-17.5) Hematocrit 38.1 % (39.0-53.0) Mean Corpuscular Volume 89 fL (79-100) Mean Corpuscular Hemoglobin 29 pg (25-35) Mean Corpuscular Hemoglobin Concent 33 g/dL (31-37) Red Cell Distribution Width 14.8 % (11.5-14.5) Platelet Count 196 x10^3/uL (140-400) Neutrophils (%) (Auto) 76 % (31-73) Lymphocytes (%) (Auto) 15 % (24-48) Monocytes (%) (Auto) 9 % (0-9) Eosinophils (%) (Auto) 1 % (0-3) Basophils (%) (Auto) 0 % (0-3) Neutrophils # (Auto) 9.3 x10^3uL (1.8-7.7) Lymphocytes # (Auto) 1.8 x10^3/uL (1.0-4.8) Monocytes # (Auto) 1.1 x10^3/uL (0.0-1.1) Eosinophils # (Auto) 0.1 x10^3/uL (0.0-0.7) Basophils # (Auto) 0.0 x10^3/uL (0.0-0.2) Sodium Level 135 mmol/L (136-145) Potassium Level 4.2 mmol/L (3.5-5.1) Chloride Level 101 mmol/L (98-107) Carbon Dioxide Level 27 mmol/L (21-32) Anion Gap 7 (6-14) Blood Urea Nitrogen 20 mg/dL (8-26) Creatinine 0.9 mg/dL (0.7-1.3) Estimated GFR (Cockcroft-Gault) 85.0 BUN/Creatinine Ratio 22 (6-20) Glucose Level 100 mg/dL (70-99) Calcium Level 8.6 mg/dL (8.5-10.1) Total Bilirubin 0.4 mg/dL (0.2-1.0) Aspartate Amino Transf (AST/SGOT) 14 U/L (15-37) Alanine Aminotransferase (ALT/SGPT) 16 U/L (16-63) Alkaline Phosphatase 134 U/L (46-116) Troponin I Quantitative < 0.017 ng/mL (0.000-0.055) YP-Dqn-V-Type Natriuretic Peptide 422 pg/mL (0-124) Total Protein 6.8 g/dL (6.4-8.2) Albumin 3.3 g/dL (3.4-5.0) Albumin/Globulin Ratio 0.9 (1.0-1.7) Influenza Type A Antigen Negative (NEGATIVE) Influenza Type B Antigen Negative (NEGATIVE) Brief Hospital Course Mr. Parker is a 62 old white male, SOA, dry cough and pleuritic chest pain during coughing for a few days now worsening in time. Chest x-ray shows no pneumonia. Hypoxic 88% on arrival. Stayed overnight with breathing much better and no wheezing appreciable. I'm comfortable discharging to home with prednisone taper, doxycycline twice a day for 7 days cough medicine and some inhalers. He is already on inhalers at home. Might even benefit from Pulmicort twice a day Follow-up PCP if no better DC time less than 30 minutes Discharge Information Condition at Discharge: Improved, Stable Follow Up: Weeks (pcp if no better) Disposition/Orders: D/C to Home Scheduled Doxycycline Hyclate (Doxycycline Hyclate) 100 Mg Tablet, 100 MG PO BID for uri MDD 1 for 7 Days, #14 Prescribed by: SOFIYA CHRISTINE on 09/16/18 1047 Scheduled PRN Albuterol Sulfate (Proair Hfa Inhaler) 8.5 Gm Hfa.aer.ad, 2 PUFF INH PRN Q6HRS PRN for SHORTNESS OF BREATH for 14 Days, Ref 0 Prescribed by: SOFIYA CHRISTINE on 09/16/18 1047 Guaifenesin/Dextromethorphan (Guaifenesin Dm Syrup) 5 Ml Syrup, 10 ML PO PRN Q6HRS PRN for COUGH MDD 1 for 7 Days Prescribed by: SOFIYA CHRISTINE on 09/16/18 1047 Ipratropium/Albuterol Sulfate (Combivent Respimat Inhal) 4 Gm Aer.w.adap, 1 INH IH QID PRN for shortness of breath, #1 Prescribed by: MARCEL LINO on 03/18/18 1237 Last Action: Reviewed on 09/16/18 0908 by SOFIYA CHRISTINE Discontinued Medications Info (No Known Medications Prior To Admisstion) Each, 1 EACH , (Reported) Entered as Reported by: ANDRE CORONA on 03/17/18 0508 Last Action: Discontinued on 09/16/18 0121 by SOFIYA CHE MD Sep 16, 2018 10:51
--- NOTE | 2018-09-16 10:56 | PDOC1 ---
History and Physical Date of Admission Date of Admission DATE: 09/16/18 TIME: 10:52 Identification/Chief Complaint Chief Complaint SOA, dry cough, pleuritic chest pain when coughing Source Source: Caregiver, Chart review, Patient History of Present Illness History of Present Illness Very pleasant 62-year-old white male who unfortunately is a 1 pack-a-day smoker for many years, comes in with acute bronchitis exacerbation. Already has inhalers at home. Continues to smoke. Chest x-ray shows no pneumonia. No white count no fever. Wheezing on arrival with 88 sats at ER. Admitted observation overnight and much better on my day of see him the next morning. Eager to go home. I have Rx'd nebulizer, Pulmicort flexhaler, by mouth prednisone, cough medicine, doxycycline. Instructed to take the Pulmicort after by mouth steroid course Prednisone for 9 days taper, doxycycline for 7 days No wheezing on discharge OTC cough med dc < 30 Past Medical History Cardiovascular: No pertinent hx Pulmonary: No pertinent hx, Bronchitis, COPD GI: No pertinent hx Heme/Onc: No pertinent hx Hepatobiliary: No pertinent hx Past Surgical History Past Surgical History: No pertinent history Family History Family History: No Significant Social History Smoke: 1 pack per day ALCOHOL: none Drugs: None Current Problem List Problem List Problems Medical Problems: (1) COPD exacerbation Status: Acute Current Medications Current Medications Current Medications Methylprednisolone Sodium Succinate (SOLU-Medrol 125MG VIAL) 125 mg 1X ONCE IV Last administered on 09/15/18at 23:30; Start 09/15/18 at 23:30; Stop 09/15/18 at 23:31; Status DC Albuterol/ Ipratropium (Duoneb) 3 ml 1X ONCE NEB Last administered on at 23:30; Start 09/15/18 at 23:30; Stop 09/15/18 at 23:31; Status DC Albuterol/ Ipratropium (Duoneb) 3 ml RTQID NEB Last administered on 09/16/18at 07:36; Start 09/16/18 at 08:00; Stop 09/17/18 at 07:59 Doxycycline Hyclate (Vibra-Tab) 100 mg 1X ONCE PO Last administered on at 00:43; Start 09/16/18 at 00:30; Stop 09/16/18 at 00:31; Status DC Zolpidem Tartrate (Ambien) 5 mg 1X ONCE PO Last administered on 09/16/18at 01: 20; Start 09/16/18 at 01:15; Stop 09/16/18 at 01:16; Status DC Methylprednisolone Sodium Succinate (SOLU-Medrol 40MG VIAL) 40 mg Q8HRS IV ; Start 09/16/18 at 14:00 Guaifenesin (Robitussin Dm) 10 ml PRN Q6HRS PRN PO COUGH; Start 09/16/18 at 09: 15 Doxycycline Hyclate (Vibra-Tab) 100 mg BID PO ; Start 09/16/18 at 12:00 Zolpidem Tartrate (Ambien) 5 mg PRN QHS PRN PO INSOMNIA; Start 09/16/18 at 09: 15 Active Scripts Active Proair Hfa Inhaler (Albuterol Sulfate) 8.5 Gm Hfa.aer.ad 2 Puff INH PRN Q6HRS PRN 14 Days Guaifenesin Dm Syrup (Guaifenesin/Dextromethorphan) 5 Ml Syrup 10 Ml PO PRN Q6HRS PRN MDD 1 7 Days Doxycycline Hyclate 100 Mg Tablet 100 Mg PO BID MDD 1 7 Days Combivent Respimat Inhal (Ipratropium/Albuterol Sulfate) 4 Gm Aer.w.adap 1 Inh IH QID PRN Allergies Allergies: Coded Allergies: No Known Drug Allergies (Unverified , 03/16/18) ROS Review of System As per history of present illness, the rest of ROS 14 point negative Physical Exam General: Alert, Oriented X3, Cooperative, No acute distress HEENT: Atraumatic, PERRLA Lungs: Clear to auscultation, Normal air movement Heart: S1S2, RRR, no thrills, no rubs, no gallops, no murmurs Cardiovascular: S1, S2 Abdomen: Normal bowel sounds, Soft, No tenderness, No hepatosplenomegaly, No masses Male Genitals Exam: normal genitalia, normal prostate Rectal Exam: not examined PELVIC: Nml ext genitalia Extremities: No clubbing, No cyanosis, No edema, Normal pulses, No tenderness/ swelling Skin: No rashes, No breakdown, No significant lesion Neuro: Normal gait, Normal speech, Strength at 5/5 X4 ext, Normal tone, Sensation intact, Cranial nerves 3-12 NL, Reflexes 2+ Vitals Vitals Vital Signs Date Time Temp Pulse Resp B/P (MAP) Pulse Ox O2 Delivery O2 Flow Rate FiO2 09/16/18 07:36 92 Nasal Cannula 2.0 09/16/18 07:00 97.4 82 20 115/66 (82) 97.4 Labs Labs Laboratory Tests Test 09/15/18 22:34 09/15/18 23:30 White Blood Count 12.2 x10^3/uL (4.0-11.0) Red Blood Count 4.26 x10^6/uL (4.30-5.70) Hemoglobin 12.4 g/dL (13.0-17.5) Hematocrit 38.1 % (39.0-53.0) Mean Corpuscular Volume 89 fL (79-100) Mean Corpuscular Hemoglobin 29 pg (25-35) Mean Corpuscular Hemoglobin Concent 33 g/dL (31-37) Red Cell Distribution Width 14.8 % (11.5-14.5) Platelet Count 196 x10^3/uL (140-400) Neutrophils (%) (Auto) 76 % (31-73) Lymphocytes (%) (Auto) 15 % (24-48) Monocytes (%) (Auto) 9 % (0-9) Eosinophils (%) (Auto) 1 % (0-3) Basophils (%) (Auto) 0 % (0-3) Neutrophils # (Auto) 9.3 x10^3uL (1.8-7.7) Lymphocytes # (Auto) 1.8 x10^3/uL (1.0-4.8) Monocytes # (Auto) 1.1 x10^3/uL (0.0-1.1) Eosinophils # (Auto) 0.1 x10^3/uL (0.0-0.7) Basophils # (Auto) 0.0 x10^3/uL (0.0-0.2) Sodium Level 135 mmol/L (136-145) Potassium Level 4.2 mmol/L (3.5-5.1) Chloride Level 101 mmol/L (98-107) Carbon Dioxide Level 27 mmol/L (21-32) Anion Gap 7 (6-14) Blood Urea Nitrogen 20 mg/dL (8-26) Creatinine 0.9 mg/dL (0.7-1.3) Estimated GFR (Cockcroft-Gault) 85.0 BUN/Creatinine Ratio 22 (6-20) Glucose Level 100 mg/dL (70-99) Calcium Level 8.6 mg/dL (8.5-10.1) Total Bilirubin 0.4 mg/dL (0.2-1.0) Aspartate Amino Transf (AST/SGOT) 14 U/L (15-37) Alanine Aminotransferase (ALT/SGPT) 16 U/L (16-63) Alkaline Phosphatase 134 U/L (46-116) Troponin I Quantitative < 0.017 ng/mL (0.000-0.055) VF-Jix-K-Type Natriuretic Peptide 422 pg/mL (0-124) Total Protein 6.8 g/dL (6.4-8.2) Albumin 3.3 g/dL (3.4-5.0) Albumin/Globulin Ratio 0.9 (1.0-1.7) Influenza Type A Antigen Negative (NEGATIVE) Influenza Type B Antigen Negative (NEGATIVE) Laboratory Tests Test 09/15/18 22:34 09/15/18 23:30 White Blood Count 12.2 x10^3/uL (4.0-11.0) Red Blood Count 4.26 x10^6/uL (4.30-5.70) Hemoglobin 12.4 g/dL (13.0-17.5) Hematocrit 38.1 % (39.0-53.0) Mean Corpuscular Volume 89 fL (79-100) Mean Corpuscular Hemoglobin 29 pg (25-35) Mean Corpuscular Hemoglobin Concent 33 g/dL (31-37) Red Cell Distribution Width 14.8 % (11.5-14.5) Platelet Count 196 x10^3/uL (140-400) Neutrophils (%) (Auto) 76 % (31-73) Lymphocytes (%) (Auto) 15 % (24-48) Monocytes (%) (Auto) 9 % (0-9) Eosinophils (%) (Auto) 1 % (0-3) Basophils (%) (Auto) 0 % (0-3) Neutrophils # (Auto) 9.3 x10^3uL (1.8-7.7) Lymphocytes # (Auto) 1.8 x10^3/uL (1.0-4.8) Monocytes # (Auto) 1.1 x10^3/uL (0.0-1.1) Eosinophils # (Auto) 0.1 x10^3/uL (0.0-0.7) Basophils # (Auto) 0.0 x10^3/uL (0.0-0.2) Sodium Level 135 mmol/L (136-145) Potassium Level 4.2 mmol/L (3.5-5.1) Chloride Level 101 mmol/L (98-107) Carbon Dioxide Level 27 mmol/L (21-32) Anion Gap 7 (6-14) Blood Urea Nitrogen 20 mg/dL (8-26) Creatinine 0.9 mg/dL (0.7-1.3) Estimated GFR (Cockcroft-Gault) 85.0 BUN/Creatinine Ratio 22 (6-20) Glucose Level 100 mg/dL (70-99) Calcium Level 8.6 mg/dL (8.5-10.1) Total Bilirubin 0.4 mg/dL (0.2-1.0) Aspartate Amino Transf (AST/SGOT) 14 U/L (15-37) Alanine Aminotransferase (ALT/SGPT) 16 U/L (16-63) Alkaline Phosphatase 134 U/L (46-116) Troponin I Quantitative < 0.017 ng/mL (0.000-0.055) UY-Wgw-D-Type Natriuretic Peptide 422 pg/mL (0-124) Total Protein 6.8 g/dL (6.4-8.2) Albumin 3.3 g/dL (3.4-5.0) Albumin/Globulin Ratio 0.9 (1.0-1.7) Influenza Type A Antigen Negative (NEGATIVE) Influenza Type B Antigen Negative (NEGATIVE) VTE Prophylaxis Ordered VTE Prophylaxis Devices: Yes VTE Pharmacological Prophylaxi: Yes Assessment/Plan Assessment/Plan Acute bronchitis no pneumonia on chest x-ray Smoker a pack a day Hypoxia-sats 88% on the ER arrival PLAN: Home today SOFIYA CHRISTINE MD Sep 16, 2018 10:56
[2018-09-16 11:00] VITALS: BP 114/62
--- NOTE | 2018-09-16 11:22 | EKG ---
[facility] [address] [place] [address] Test Date: 2018-09-15 Test Time: 22:27:05 Pat Name: LYNDA ANGEL Department: Room: 530 1 Gender: M Acute Care Nursing Assistant: : [id number] Requested By: JENNIFER BROWN Order Number: [id number] Reading MD: Randy Zaragoza MD Measurements Intervals [place] Rate: 88 P: 41 PA: 144 QRS: -39 QRSD: 98 T: 56 QT: 378 QTc: 460 Interpretive Statements SINUS RHYTHM ATRIAL PREMATURE COMPLEX(ES) LAFB Electronically Signed On 09-17-2018 10:37:04 CDT by Randy Zaragoza MD
[2018-09-16] MEDS ORDERED: DOXYCYCLINE HYCLATE 100 MG TABLET PO SCH (12:00)
[2018-09-16] MEDS ORDERED: methylPREDNISolone SOD SUCC PF 40 MG/ML VIAL. IV SCH (14:00)
== END 2018-09-16 11:53 | disposition home or self-care (01) | DRG 190 ==
LOC: ER 22:10 → 5 NORTH 09-16 00:03
PROVIDERS: ADMIT Internal Medicine; ATTEND Internal Medicine
DX: J44.0 Chronic obstructive pulmonary disease with (acute) lower respiratory infection (principal); J96.20 Acute and chronic respiratory failure, unspecified whether with hypoxia or hypercapnia; J44.1 Chronic obstructive pulmonary disease with (acute) exacerbation; J20.9 Acute bronchitis, unspecified; F17.210 Nicotine dependence, cigarettes, uncomplicated; F11.90 Opioid use, unspecified, uncomplicated; Z90.49 Acquired absence of other specified parts of digestive tract; Z79.899 Other long term (current) drug therapy
CPT/HCPCS: 36415; 71045; 80053; 83880; 84484; 85025; 87804; 93005; 94640; 96374; J2930; J7620; 99285-25